=== PATIENT | male | born 1960 | race Caucasian/White ===

== ENCOUNTER 2018-11-07 13:46 | Emergency (ER) | payer OTHER, MEDICAID ==
[~2018-11-07] VITALS: Ht 182.9 cm; Wt 117.9 kg
--- NOTE | ~2018-11-07 | EMS ---
[address] [address] EMS Patient Care Report Name: FRANKLIN GARCIA Room #: REG CHARLES Julio#: [id number] Admission: 11/07/18 Attend Phys: Discharge: Date of : 56 Report #: [id number] THIS REPORT FOR: //name// Report Transmitted: 11/07/2018 13:[address] [facility] MED-ACT Incident [id number] @ 11/07/2018 13:12 Incident [address] [place] [address] Patient FRANKLIN GARCIA Male, 58 Years 1960 Patient Address [address] [place] [address] Patient History Stroke/CVA,Bipolar II Disorder,Depression, Patient Allergies No known allergies, Patient Medications Unknown, Chief Complaint No complaint Disposition Transported No Lights/[place] Reason Psychiatric Problem/Abnormal Behavior/Suicide Attempt Transported To [facility] Narrative Arrived on scene to find a 58 year old male patient that was sitting in the community activity room with 7 other residents of the facility. The facility [address] [address] EMS Patient Care Report Name: FRANKLIN GARCIA Room #: REG ER Sumanth#: [id number] Admission: 11/07/18 Attend Phys: Discharge: Date of : 56 Report #: [id number] nurse stated that allegedly he became very aggressive without any motive towards another resident. Due to his outburst and his behavior towards staff after that incident, the doctor would like him to go to the ED for a psych eval. EMS asked the staff to relocate the other 7 residents that were within close proximity to the patient that was allegedly being aggressive towards anyone that got near him. Rapport was made with patient and was quickly noticed that he obvious cognitive delays, slow speech, and atypical facial expressions during a conversation. It was determined that this is he at times during psychotic episodes is normal for him to be A/Ox 3 with a GCS of 14, with delayed speech and cognitive delays. These are all deficits from his CVA. Patient explained " I found DVDs and i didnt know whos they were, i asked linda if he knew. He got mad. I got mad. I dont know what else to say". EMS asked if this all happened today, to which he explained that this happened earlier. EMS asked the patient if he has been in this room with linda this whole time, He said yes. The situation was explained to the patient that the facility physician wanted him to be taken to the ED for a psych evaluation, Patient consented to be Transported to the hospital for further evaluation of his behavioral outburst. He was assisted to the [place] and placed in position of comfort. He was cooperative and understanding from beginning of call, and thanked EMS for understanding him. He was monitored en route to the hospital without any changes to his condition. At facility he was A/Ox4 with a GCS of 15, At destination report was given to ED Charge nurse, and Patient signed EPCR. Initial Vitals @13:18P: 83,R: 20,BP: 135/82,Pain: 0/10,GCS: 15,SpO2: 95,Revised Trauma: 12, @13:35P: 86,R: 18,BP: 139/89,Pain: 0/10,GCS: 15,SpO2: 94,Revised Trauma: 12, @13:34P: 88,R: 18,BP: 149/91,Pain: 0/10,GCS: 15,SpO2: 94,Revised Trauma: 12, Assessments @13:18MENTAL:Person Oriented,Time Oriented,Event Oriented,Place Oriented,SKIN:HEENT:LUNG SOUNDS:General: No Abnormalities,ABDOMEN:General: No Abnormalities,PELVIS//GI:EXTREMITIES:Capillary Refill: Right Lower: < 2 Sec,Capillary Refill: Right Upper: < 2 Sec,Capillary Refill: Left Upper: < 2 Sec,PULSE:Brachial: 2+ Normal,Radial: 2+ Normal,NEURO:Other, Impression Behavioral/psychiatric episode Timeline 13:11,Call Received 13:11,Psap Call 13:12,Dispatched 13:12,En Route 13:15,On Scene [address] [address] EMS Patient Care Report Name: FRANKLIN GARCIA Room #: REG CHARLES Julio#: [id number] Admission: 11/07/18 Attend Phys: Discharge: Date of : 56 Report #: [id number] 13:17,At Patient 13:18,BP: 135/82 M,PULSE: 83,RR: 20 R,SPO2: 95 Ox,ETCO2: ,BG: ,PAIN: 0,GCS: 15, 13:34,BP: 149/91 M,PULSE: 88,RR: 18 R,SPO2: 94 Ox,ETCO2: ,BG: ,PAIN: 0,GCS: 15, 13:35,Depart Scene 13:35,BP: 139/89 M,PULSE: 86,RR: 18 R,SPO2: 94 Ox,ETCO2: ,BG: ,PAIN: 0,GCS: 15, 13:43,At Destination 14:06,Call Closed Disclaimer v1.1 Copyright 2019 [employer] This EMS Care Summary contains data elements from the applicable legal record (which may be displayed differently). It is designed to provide pertinent information for the following purposes: continuity of care, clinical quality, and state data reporting. The complete legal record is available to ED staff and administrators of the receiving hospital in [facility]'s Patient Tracker. All data is provided "as is."
[2018-11-07 15:18] VITALS: BP 131/79
[2018-11-07 15:33] LABS: URINE BILIRUBIN NEGATIVE (Negative); URINE BLOOD NEGATIVE (Negative); URINE CLARITY CLEAR; URINE COLOR YELLOW; URINE GLUCOSE-RANDOM* 3+ (Negative); URINE KETONES NEGATIVE (Negative); URINE LEUKOCYTES-REFLEX NEGATIVE (Negative); URINE NITRITE-REFLEX NEGATIVE (Negative); URINE PROTEIN (DIPSTICK) NEGATIVE (Negative)
[2018-11-07] MEDS ORDERED: DIVALPROEX SOD500 M1 PO (16:42)
[2018-11-07] MEDS ORDERED: METOPROLOL TART25 MG PO (16:42)
[2018-11-07] MEDS ORDERED: KEPPRA 500 MG500 M1 PO (16:43)
[2018-11-07] MEDS ORDERED: TRAZODONE HCL50 MG PO (16:43)
[2018-11-07] MEDS ORDERED: SEROQUEL 25 MG25 M1 PO (16:43)
[2018-11-07] MEDS ORDERED: PAXIL10 MG PO (16:44)
[2018-11-07] MEDS ORDERED: ASPIRIN325 PO (16:44)
[2018-11-07] MEDS ORDERED: DEPAKOTE ER250 MG PO (16:44)
[2018-11-07] MEDS ORDERED: PEPCID20 MG PO (16:44)
[2018-11-07] MEDS ORDERED: LIPITOR40 MG PO (16:45)
[2018-11-07] MEDS ORDERED: QUETIAPINE FUM400 M1 PO (16:45)
[2018-11-07] MEDS ORDERED: TYLENOL325 MG PO (16:49)
== END 2018-11-07 17:26 | disposition home or self-care (01) ==
LOC: ER 13:46
PROVIDERS: Emergency Medicine
DX: R73.9 Hyperglycemia, unspecified (principal); R45.1 Restlessness and agitation; F31.9 Bipolar disorder, unspecified; F17.210 Nicotine dependence, cigarettes, uncomplicated; Z86.73 Personal history of transient ischemic attack (TIA), and cerebral infarction without residual deficits; Z88.0 Allergy status to penicillin